=== PATIENT | female | born 1955 | race Caucasian/White ===

== ENCOUNTER 2018-05-24 10:45 | Inpatient (IN) | payer BC ==
[2018-05-24] MEDS ORDERED: IV FLUID CONTINUATION 900 ML IV ONE (12:55)
[2018-05-24] MEDS ORDERED: MIDAZOLAM 2 MG/2 ML VIAL IV ONE (13:15)
[2018-05-24] MEDS ORDERED: fentaNYL (PF) 50 MCG/ML 2 ML AMP IVP ONE (13:15)
[2018-05-24] MEDS ORDERED: LIDOCAINE 1% INJ 10MG/ML (20 ML MDV) SQ ONE (13:19)
[2018-05-24] MEDS ORDERED: NITROGLYCERIN 1000MCG/10ML SYRINGE INTRACORON ONE (13:32)
[2018-05-24] MEDS ORDERED: IOPAMIDOL-370 125ML BTL INJ ONE (13:33)
[2018-05-24] MEDS ORDERED: RX INFO: IV CONTRAST WAS GIVEN 1 EACH MISC MISCELLANE PRN (13:43)
[2018-05-24] MEDS: METOPROLOL SUCCINATE (ER) 25 MG TAB.ER.24H PO SCH (21:23)
[2018-05-25 07:42] VITALS: TEMP 98.2
[2018-05-25] MEDS: METOPROLOL SUCCINATE (ER) 25 MG TAB.ER.24H PO SCH (07:42)
[2018-05-25] MEDS ORDERED: ASPIRIN 325 MG TAB PO SCH (09:00)
[2018-05-25] MEDS ORDERED: CLOPIDOGREL 75 MG TAB PO SCH (09:00)
[2018-05-25 09:26] LABS: Basophils % (A) 0 %; Eosinophils # (A) 0.1 k/uL (0-0.7); Eosinophils % (A) 1 %; HCT 38.3 % (34.0-46.0); HGB 13.2 gm/dL (11.4-16.0); Lymphocytes # (A) 1.5 k/uL (1.0-4.8); Lymphocytes % (A) 23 %; MCH 32.8 pg (25.0-35.0); MCHC 34.4 g/dL (31.0-37.0); MCV 95.3 fL (80.0-100.0); Mean Platelet Volume 7.2; Monocytes # (A) 0.3 k/uL (0-1.0); Monocytes % (A) 5 %; Neutrophils # (A) 4.4 k/uL (1.3-7.7); Neutrophils % (A) 70 %; Platelet Count 209 k/uL (150-450); RBC 4.02 m/uL (3.80-5.40); RDW 12.7 % (11.5-15.5); WBC 6.4 k/uL (3.8-10.6)
[2018-05-25 09:48] LABS: Anion Gap 11 mmol/L; Blood Urea Nitrogen 8 mg/dL (7-17); Calcium 9.3 mg/dL (8.4-10.2); Carbon Dioxide 23 mmol/L (22-30); Chloride 108 mmol/L (98-107); Glucose 92 mg/dL (74-99); Potassium 4.2 mmol/L (3.5-5.1); Sodium 142 mmol/L (137-145)
--- NOTE | 2018-05-25 10:33 | P.PN ---
Subjective Progress Note Date: 05/25/18 Principal diagnosis: Chest discomfort This is a pleasant 62-year-old female patient who presented to [facility] with chest discomfort was concerning for angina. She underwent a heart catheterization by Dr. VC Denson yesterday and that showed severe disease involving a small PLV branch of the RCA. Maximize medical treatment was recommended. I'll follow-up with her today, she denies having any chest pain or discomfort or shortness of breath. The right groin is soft and nontender and without any bruises. From a perivascular standpoint overview she can be discharged home. Objective - Vital Signs Vital signs: Vital Signs Temp 98.2 F 05/25/18 07:39 Pulse 65 05/25/18 07:39 Resp 18 05/25/18 07:39 BP 132/76 05/25/18 07:39 Pulse Ox 97 05/25/18 07:39 Intake & Output 05/24/18 05/25/18 05/25/18 18:59 06:59 18:59 Intake Total 100 650 Balance 100 650 Weight 81.306 kg 58 kg Intake: IV 100 Intake, IV Titration 650 Amount Sodium Chloride 0.9% 1, 650 000 ml @ 75 mls/hr IV . [id number] [facility] Rx#:[id number] - Constitutional General appearance: Present: no acute distress - Respiratory Respiratory: bilateral: CTA - Cardiovascular Rhythm: regular Heart sounds: normal: S1, S2 - Labs CBC & Chem 7: 05/25/18 09:14 05/25/18 09:14 Labs: Abnormal Lab Results - Last 24 Hours (Table) 05/25/18 Range/Units 09:14 Chloride 108 H (98-107) mmol/L Assessment and Plan Assessment: Assessment #1 coronary artery disease involving a small branch of the RCA Plan #1 the patient can be discharged home the next #2 she is to be on aspirin, Plavix, and statin.
[2018-05-25] MEDS: SODIUM CHLORIDE 0.9% 1,000 ML IV SCH (10:38)
[2018-05-25 11:18] VITALS: BP 153/75; PULSE 66; RESP 16
--- NOTE | 2018-05-25 16:18 | P.CONS ---
History of Present Illness - Reason for Consult Consult date: 05/25/18 - Chief Complaint Elevated troponin, suspected an NSTEMI - History of Present Illness This is a 62-year-old patient with underlying chronic current history of tobacco use, and noncompliance medical evaluation and visits with Dr. Moffett, also with the current dental tooth abscess for which he is on amoxicillin, admitted to [facility] secondary to chest pressure. Was found to be in a NSTEMI. sHe came in with abnormal troponin and had a positive troponin with a peak of 0.45 patient was transferred to [facility] for cardiac catheterization for evaluation. Imaging studies at [facility] shows electrocardiogram of EF 55-60% without any wall motion abnormality, no LVH, mild MR, mild TR, RVSP 42, mild TX , no aortic stenosis, no AR, lipase normal, LDL of 167, creatinine of 0.96 GFR 59 EKG did not reveal any ST segment elevation or depression, Review of Systems Constitutional: Reports as per HPI, Denies anorexia, Denies chills, Denies chronic headaches, Denies chronic pain, Denies daytime sleepiness, Denies fatigue, Denies fever, Denies lethargy, Denies malaise, Denies night sweats, Denies poor appetite, Denies sweats, Denies weakness, Denies weight gain, Denies weight loss Ears, nose, mouth and throat: Reports as per HPI Cardiovascular: Reports as per HPI, Reports chest pain, Reports edema Respiratory: Reports as per HPI, Denies congestion, Denies cough, Denies cough with sputum, Denies dyspnea, Denies excessive sputum, Denies hemoptysis, Denies home oxygen, Denies pain, Denies pain on inspiration, Denies pleurisy, Denies respiratory infections, Denies sleep apnea, Denies snoring, Denies wheezing Genitourinary: Reports as per HPI, Denies abnormal vaginal bleeding, Denies decreased libido, Denies difficulty conceiving, Denies difficulty voiding, Denies dysmenorrhea, Denies dyspareunia, Denies dysuria, Denies flank pain, Denies genital sores, Denies hematuria, Denies hot flashes, Denies incomplete emptying, Denies kidney stones, Denies menorrhagia, Denies mixed incontinence, Denies nocturia, Denies pelvic pain, Denies post void dribbling, Denies , Denies prolapse symptoms, Denies stress incontinence, Denies urge incontinence , Denies urgency, Denies urinary frequency, Denies vaginal discharge, Denies vaginal dryness, Denies vaginal itching, Denies vaginal odor Menstruation: Reports as per HPI, Reports postmenopausal Musculoskeletal: Reports as per HPI, Reports low back pain Integumentary: Reports as per HPI Neurological: Reports as per HPI, Denies aphasia, Denies ataxia, Denies balance difficulties, Denies burning pain, Denies change in mentation, Denies change in smell/taste, Denies change in speech, Denies confusion, Denies convulsions, Denies double vision, Denies gait dysfunction, Denies head injury, Denies headaches, Denies hearing difficulties, Denies lack of coordination, Denies loss of vision, Denies memory loss, Denies migraines, Denies motor disturbance, Denies numbness, Denies paralysis, Denies paresthesias, Denies seizures, Denies sensory deficit, Denies spasticity, Denies syncope, Denies tic, Denies tingling , Denies transient paralysis, Denies tremors, Denies vertigo, Denies weakness, Denies visual changes Endocrine: Reports as per HPI Hematologic/Lymphatic: Reports as per HPI Allergic/Immunologic: Reports as per HPI Past Medical History Past Medical History: Coronary Artery Disease (CAD), Osteoarthritis (OA) Additional Past Medical History / Comment(s): currently being tx for dental abcess History of Any Multi-Drug Resistant Organisms: None Reported Past Surgical History: Tubal Ligation Additional Past Surgical History / Comment(s): 05-24-18 heart cath -clear. 1 upper dental implant,life style fce lift approx 10 years ago Past Anesthesia/Blood Transfusion Reactions: No Reported Reaction Smoking Status: Current every day smoker (One pack per day since age 15 currently down at one half pack per day) - Past Family History Mother Family Medical History: Dementia Additional Family Medical History / Comment(s): parkinsons Father Family Medical History: CVA/TIA, Diabetes Mellitus Brother(s) Additional Family Medical History / Comment(s): carotid stenosis Sister(s) Family Medical History: Diabetes Mellitus, Fibromyalgia Medications and Allergies Home Medications Medication Instructions Recorded Confirmed Type Acetaminophen Tab [Tylenol] 500 mg PO BID PRN 05/24/18 05/24/18 History Amoxicillin 500 mg PO Q8H 05/24/18 05/24/18 History Aspirin 325 mg PO DAILY tab 05/25/18 Rx Atorvastatin Calcium [Lipitor] 40 mg PO HS #30 tablet 05/25/18 Rx Clopidogrel [Plavix] 75 mg PO DAILY #30 tab 05/25/18 Rx Metoprolol Succinate (ER) [Toprol 25 mg PO DAILY #30 tab.er.24h 05/25/18 Rx XL] Allergies Allergy/AdvReac Type Severity Reaction Status Date / Time No Known Allergies Allergy Verified 05/24/18 20:39 Physical Exam Vitals: Vital Signs Temp Pulse Resp BP BP Pulse Ox 05/25/18 11:17 66 16 153/75 100 05/25/18 07:39 98.2 F 65 18 132/76 97 05/25/18 04:00 97.5 F L 68 18 118/63 98 05/24/18 23:39 97.2 F L 69 16 133/69 97 05/24/18 20:00 97.3 F L 62 16 130/70 99 05/24/18 12:36 98.7 F 71 20 149/71 142/70 98 Intake and Output 05/24/18 05/25/18 05/25/18 22:59 06:59 14:59 Intake Total 650 Balance 650 Intake: Intake, IV Titration 650 Amount Sodium Chloride 0.9% 1, 650 000 ml @ 75 mls/hr IV . [id number] [facility] Rx#:[id number] Other: Weight 58 kg - Constitutional General appearance: cooperative, no acute distress - EENT Eyes: anicteric sclerae, EOMI, poor dentition, normal appearance ENT: NA/AT - Neck Neck: normal ROM - Respiratory Respiratory: bilateral: CTA, negative: dullness, rales, rhonchi, wheezing, prolonged inspiration - Cardiovascular Rhythm: regular - Gastrointestinal General gastrointestinal: normal bowel sounds, soft - Integumentary Integumentary: normal - Neurologic Neurologic: CNII-XII intact - Musculoskeletal Musculoskeletal: gait normal - Psychiatric Psychiatric: A&O x's 3, appropriate affect, intact judgment & insight Results CBC & Chem 7: 05/25/18 09:14 05/25/18 09:14 Labs: Abnormal Lab Results - Last 24 Hours (Table) 05/25/18 Range/Units 09:14 Chloride 108 H (98-107) mmol/L Laboratory Results WBC 6.4 k/uL (3.8-10.6) 05/25/18 09:14 RBC 4.02 m/uL (3.80-5.40) 05/25/18 09:14 Hgb 13.2 gm/dL (11.4-16.0) 05/25/18 09:14 Hct 38.3 % (34.0-46.0) 05/25/18 09:14 MCV 95.3 fL (80.0-100.0) 05/25/18 09:14 MCH 32.8 pg (25.0-35.0) 05/25/18 09:14 MCHC 34.4 g/dL (31.0-37.0) 05/25/18 09:14 RDW 12.7 % (11.5-15.5) 05/25/18 09:14 Plt Count 209 k/uL (150-450) 05/25/18 09:14 Neutrophils % 70 % 05/25/18 09:14 Lymphocytes % 23 % 05/25/18 09:14 Monocytes % 5 % 05/25/18 09:14 Eosinophils % 1 % 05/25/18 09:14 Basophils % 0 % 05/25/18 09:14 Neutrophils # 4.4 k/uL (1.3-7.7) 05/25/18 09:14 Lymphocytes # 1.5 k/uL (1.0-4.8) 05/25/18 09:14 Monocytes # 0.3 k/uL (0-1.0) 05/25/18 09:14 Eosinophils # 0.1 k/uL (0-0.7) 05/25/18 09:14 Basophils # 0.0 k/uL (0-0.2) 05/25/18 09:14 Sodium 142 mmol/L (137-145) 05/25/18 09:14 Potassium 4.2 mmol/L (3.5-5.1) 05/25/18 09:14 Chloride 108 mmol/L (98-107) H 05/25/18 09:14 Carbon Dioxide 23 mmol/L (22-30) 05/25/18 09:14 Anion Gap 11 mmol/L 05/25/18 09:14 BUN 8 mg/dL (7-17) 05/25/18 09:14 Creatinine 0.62 mg/dL (0.52-1.04) 05/25/18 09:14 Est GFR (CKD-EPI)AfAm >90 (>60 ml/min/1.73 sqM) 05/25/18 09:14 Est GFR (CKD-EPI)NonAf >90 (>60 ml/min/1.73 sqM) 05/25/18 09:14 Glucose 92 mg/dL (74-99) 05/25/18 09:14 Calcium 9.3 mg/dL (8.4-10.2) 05/25/18 09:14 Assessment and Plan Plan: 1. Acute non-ST elevation Ab faction, with known history of hyperlipidemia untreated, current tobacco use, for which patient underwent cardiac catheter, no intervention needed, medically managed at this time, aspirin and Plavix was recommended, along with statins. 2. Current tobacco use, patient refused any cessation program using Chantix as she had some side effect before, I advised to use nicotine patches over-the- counter or Nicotrol inhaler 3. CK D stage II, monitor creatinine as an outpatient, 4. Hyperlipidemia LDL of 167, statins initiated 80 mg Lipitor, lipid panel to follow as an outpatient 5. GI prophylaxis next 6. DVT prophylaxis next 7. Current dental abscess treatment using amoxicillin for which she is to continue post discharge
--- NOTE | 2018-06-29 16:55 | CC ---
CARDIAC CATHETERIZATION REPORT DATE OF PROCEDURE: 05/24/2018 Mrs. Huitron was transferred from [facility] because of symptoms suggestive of unstable angina for cardiac catheterization. PROCEDURE: Right groin was prepped and draped in the usual manner and the skin was infiltrated with 2% Xylocaine. The right femoral artery was entered using Seldinger technique. A #6- [place] sheath was placed in. Selective coronary angiography was then performed in multiple projections and the left ventricular pressures were obtained. Patient tolerated the procedure well. HEMODYNAMICS: Left ventricular end-diastolic pressure was 8 to 12 mmHg prior to angiography. No gradient was noted across the aortic valve. SELECTIVE CORONARY ANGIOGRAPHY: 1. Left main coronary artery is normal and patent. 2. LAD is a good-caliber blood vessel and gives rise to a good-sized diagonal branch. LAD and its branches are normal. 3. Circumflex coronary artery is normal. 4. Right coronary artery is dominant in distribution and gives rise to the posterior descending artery. Right coronary artery and its branches are normal. RECOMMENDATIONS: Symptomatic medical therapy and risk factor modification. MMODL / IJN: [id number] /
== END 2018-05-25 12:37 | disposition home or self-care (01) | DRG 282 ==
LOC: 2CATHESU 12:00 → 6SEL 13:35
PROVIDERS: ADMIT Internal Medicine Cardiovascular Disease; ATTEND Internal Medicine Cardiovascular Disease
PROC: B2111ZZ Fluoroscopy of Multiple Coronary Arteries using Low Osmolar Contrast (ICD-10-PCS; 2018-05-24)
PROC: 4A023N7 Measurement of Cardiac Sampling and Pressure, Left Heart, Percutaneous Approach (ICD-10-PCS; principal; 2018-05-24 13:05)
DX: I21.4 Non-ST elevation (NSTEMI) myocardial infarction (principal); F17.210 Nicotine dependence, cigarettes, uncomplicated; I25.10 Atherosclerotic heart disease of native coronary artery without angina pectoris; K04.7 Periapical abscess without sinus; M19.90 Unspecified osteoarthritis, unspecified site; E78.5 Hyperlipidemia, unspecified; N18.2 Chronic kidney disease, stage 2 (mild); Z79.02 Long term (current) use of antithrombotics/antiplatelets; Z79.82 Long term (current) use of aspirin; Z79.899 Other long term (current) drug therapy; Z91.19 Patient's noncompliance with other medical treatment and regimen; Z98.51 Tubal ligation status; Z82.0 Family history of epilepsy and other diseases of the nervous system; Z83.3 Family history of diabetes mellitus; Z82.3 Family history of stroke
CPT/HCPCS: 80048; 85025; 93458

== ENCOUNTER → 2020-06-25 | Outpatient (CLI) | payer BC ==
--- NOTE | 2020-06-26 13:46 | P.ARTDOP ---
Arterial Doppler LOWER EXTREMITY ARTERIAL DOPPLER: DATE OF SERVICE: 06/25/2020 Reason for study: Bilateral leg pain. Doppler waveforms: Multiphasic bilaterally throughout. Pulse volume recording: []. Pressure gradients: None. Ankle-brachial indices: Greater than 1 bilaterally. Toe brachial indices: 0.81 on the right, 0.90 on the left Impression: Normal study.
== END | disposition home or self-care (01) ==
LOC: RADUSWWP 12:40
PROVIDERS: ATTEND Internal Medicine
DX: M79.606 Pain in leg, unspecified (principal)
CPT/HCPCS: 93922; 93923

== ENCOUNTER → 2020-07-10 | Outpatient (CLI) | payer BC ==
--- NOTE | 2020-07-11 10:01 | ECHOF ---
Referral Reason:I21.14 MEASUREMENTS -------- HEIGHT: 165.1 cm WEIGHT: 84.8 kg BP: RVIDd: 3.0 cm (< 3.3) IVSd: 1.3 cm (0.6 - 1.1) LVIDd: 3.7 cm (3.9 - 5.3) LVPWd: 1.3 cm (0.6 - 1.1) EDV(Teich): 57 ml IVSs: 1.4 cm LVIDs: 3.4 cm LVPWs: 1.4 cm %IVS Thck: 11 % ESV(Teich): 47 ml EF(Teich): 17 % %FS: 7 % SV(Teich): 10 ml LA Diam: 3.6 cm (2.7 - 3.8) LALs A4C: 5.8 cm LAAs A4C: 18.3 cm LAESV A-L A4C: 49 ml LAESV MOD A4C: 47 ml LALs A2C: 6.0 cm LAAs A2C: 17.3 cm LAESV A-L A2C: 42 ml LAESV MOD A2C: 40 ml LAESV(A-L): 46 ml LAESV Index (A-L): 24.07 ml/m Ao Diam: 3.3 cm (2.0 - 3.7) AV Cusp: 2.1 cm (1.5 - 2.6) LA Diam: 3.9 cm (2.7 - 3.8) MV EXCURSION: 13.883 mm (> 18.000) MV EF SLOPE: 57 mm/s (70 - 150) EPSS: 0.8 cm MV E [place]: 0.45 m/s MV DecT: 290 ms MV Dec [place]: 1.6 m/s MV A [place]: 0.69 m/s MV E/A Ratio: 0.65 MV PHT: 84 ms TR Vmax: 2.93 m/s TR maxP.29 mmHg RAP: 5.00 mmHg RVSP: 39.29 mmHg FINDINGS -------- Sinus rhythm. This was a technically good study. LV size, wall thickness and systolic function are normal, with an EF greater than 55%. The left vero tricular size is normal. The right ventricle is normal in size. The left atrial size is normal. Normal LA size by volume 22+/-6 ml/m2. The right atrial size is normal. The aortic valve is trileaflet, and appears structurally normal. No aortic stenosis or regurgitation. Mild mitral regurgitation is present. Mild tricuspid regurgitation present. There is mild pulmonary hypertension. There is no pulmonic regurgitation present. The aortic root size is normal. There is no pericardial effusion. CONCLUSIONS -------- 1. LV size, wall thickness and systolic function are normal, with an EF greater than 55%. 2. The left ventricular size is normal. 3. The right ventricle is normal in size. 4. The left atrial size is normal. 5. Normal LA size by volume 22+/-6 ml/m2. 6. The right atrial size is normal. 7. Mild mitral regurgitation is present. 8. Mild tricuspid regurgitation present. 9. There is mild pulmonary hypertension. SYSTEMS INTEGRATION ADVISOR: Julia Gillis RDCS
== END | disposition home or self-care (01) ==
LOC: RADECHMAIN 14:51
PROVIDERS: ATTEND Internal Medicine
DX: I08.1 Rheumatic disorders of both mitral and tricuspid valves (principal); I27.20 Pulmonary hypertension, unspecified
CPT/HCPCS: 93306

== ENCOUNTER → 2021-02-17 | Outpatient (CLI) | payer OTHER ==
--- NOTE | 2021-02-17 18:45 | BD ---
EXAMINATION TYPE: Axial Bone Density DATE OF EXAM: 02/17/2021 COMPARISON: NONE CLINICAL HISTORY: Height: 64.5 IN Weight: 189 LBS FRAX RISK QUESTIONS: Current Tobacco Use: YES RISK FACTORS HISTORY OF: History of Wrist Fracture: RT WRIST FX AGE 30 Active: YES Postmenopausal woman: AGE 59 MEDICATIONS: Additional Medications: PLAVIX, LIPITOR, 325 MG ASPIRIN, METOPROLOL, ATORVASTATIN, CLOPIDOGREL EXAM MEASUREMENTS: Bone mineral densitometry was performed using the [employer] System. Bone mineral density as measured about the Lumbar spine is: ----- L1-L4(G/cm2): 1.158 T Score Values are as follows: ----- L2: -0.8 ----- L3: 0.3 ----- L4: -0.1 ----- L1-L4: -0.2 Bone mineral density BASELINE Bone mineral density about the R hip (g/cm2): 0.913 Bone mineral density about the L hip (g/cm2): 0.930 T Score values are as follows: -----R Neck: -0.9 -----L Neck: -0.8 -----R Total: -0.1 -----L Total: 0.1 Bone mineral density BASELINE IMPRESSION: Normal (Values between +1 and -1 indicate normal bone mass). Consider repeating this study in 5 year s or sooner if there is some new clinical indication. NOTE: T-SCORE=SD OF THE YOUNG ADULT MEAN.
--- NOTE | 2021-02-20 11:18 | MM ---
Reason for exam: screening (asymptomatic). History: Patient is postmenopausal. Took hormonal contraceptives for 1 month. Physical Findings: A clinical breast exam by your physician is recommended on an annual basis and results should be correlated with mammographic findings. MG Screening Mammo w CAD Bilateral CC and MLO view(s) were taken. No prior studies available for comparison. There are scattered fibroglandular densities. There is no discrete abnormality. Small benign oil cyst calcifications. ASSESSMENT: Benign, BI-RAD 2 RECOMMENDATION: Routine screening mammogram of both breasts in 1 year. Patient should continue monthly self breast exams. A negative report should not preclude additional follow up of suspicious palpable abnormalities.
== END | disposition home or self-care (01) ==
LOC: RADMAMWWP 15:19
PROVIDERS: ATTEND Internal Medicine
DX: Z12.31 Encounter for screening mammogram for malignant neoplasm of breast (principal); M81.0 Age-related osteoporosis without current pathological fracture
CPT/HCPCS: 77067; 77080

== ENCOUNTER 2022-09-28 09:44 | Emergency (ER) | payer OTHER ==
[2022-09-28 09:57] VITALS: TEMP 98.7
[2022-09-28] MEDS ORDERED: dexAMETHasone 2 MG TAB PO STA (10:40)
--- NOTE | 2022-09-28 10:40 | ED ---
General Adult HPI - General Chief complaint: Upper Respiratory Infection Stated complaint: SOB, Sent by PCP Time Seen by Provider: 09/28/22 10:30 Source: patient, RN notes reviewed, old records reviewed Mode of arrival: ambulatory Limitations: no limitations - History of Present Illness Initial comments: Patient is a 66-year-old female who has a past medical history remarkable for tobacco use, CAD who presents emergency Department complaining of a cough since yesterday. Endorses nasal congestion, nonproductive cough. Is concerned that she may have an upper respiratory infection. Once vaccinated for Covid. No known sick contacts. No formally diagnosed COPD. Denies any chest pain, shortness of breath, abdominal pain, nausea, vomiting, diarrhea. Presents for further evaluation at this time. Denies any fevers at home. Was instructed to come to the emergency department by her PCP. - Related Data Home Medications Medication Instructions Recorded Confirmed Atorvastatin Calcium [Lipitor] 80 mg PO DAILY 09/28/22 09/28/22 Previous Rx's Medication Instructions Recorded Aspirin 325 mg PO DAILY tab 05/25/18 Clopidogrel [Plavix] 75 mg PO DAILY #30 tab 05/25/18 Metoprolol Succinate (ER) [Toprol 25 mg PO DAILY #30 tab.er.24h 05/25/18 XL] Albuterol Inhaler [Ventolin Hfa 1 - 2 puff INHALATION Q6H PRN #1 09/28/22 Inhaler] dispenser dexAMETHasone [Decadron] 4 mg PO DAILY 4 Days #4 tab 09/28/22 Allergies Allergy/AdvReac Type Severity Reaction Status Date / Time No Known Allergies Allergy Verified 09/28/22 11:28 Review of Systems ROS Statement: Those systems with pertinent positive or pertinent negative responses have been documented in the HPI. Review of Systems: CONST: Denies fever EYES: Denies blurry vision ENT: Endorses nasal congestion C/V: Denies Chest pain RESP: Denies shortness of breath GI: Denies abdominal pain : Denies dysuria SKIN: Denies rash. MSK: Denies joint pain. NEURO: Denies headache ROS Other: All systems not noted in ROS Statement are negative. Past Medical History Past Medical History: Coronary Artery Disease (CAD), Osteoarthritis (OA) Additional Past Medical History / Comment(s): currently being tx for dental abcess History of Any Multi-Drug Resistant Organisms: None Reported Past Surgical History: Tubal Ligation Additional Past Surgical History / Comment(s): 05-24-18 heart cath -clear. 1 upper dental implant,life style fce lift approx 10 years ago Past Anesthesia/Blood Transfusion Reactions: No Reported Reaction Past Psychological History: No Psychological Hx Reported Past Alcohol Use History: Rare Past Drug Use History: None Reported - Past Family History Mother Family Medical History: Dementia Additional Family Medical History / Comment(s): parkinsons Father Family Medical History: CVA/TIA, Diabetes Mellitus Brother(s) Additional Family Medical History / Comment(s): carotid stenosis Sister(s) Family Medical History: Diabetes Mellitus, Fibromyalgia General Exam - General Exam Comments Initial Comments: General: Appears in no acute distress. HEAD: Normal with no signs of head trauma. EYES: PERRLA, EOMI, conjunctiva normal, no discharge. ENT: Hearing grossly intact, normal oropharynx. RESPIRATORY: Clear breath sounds bilaterally. No rhonchi. No wheezes. Mild hypoxia on room air. No respiratory distress. C/V: Regular rate and rhythm. S1 and S2 auscultated, peripheral pulses 2+ and intact throughout ABD: Abd is soft, nontender, nondistended EXT: Normal range of motion, no obvious deformity SKIN: No rashes or lesions observed on exposed skin. NEURO: Alert and oriented 4. Limitations: no limitations Course Vital Signs 09/28/22 09/28/22 09:55 13:33 Temperature 98.7 F Pulse Rate 107 H 90 Respiratory 16 18 Rate Blood Pressure 108/61 116/65 O2 Sat by Pulse 93 L 92 L Oximetry Medical Decision Making - Medical Decision Making Based on the patient's presentation and physical exam, I'm concerned for upper respiratory illness for the patient. We will obtain a chest x-ray as well as Covid and flu swabs. Vital signs within acceptable limits. She was in agreement this plan. She'll be given a dose of Decadron as well as Tylenol. Vital signs were positive for influenza type A. Negative for Covid. Chest x- ray showed no acute cardiopulmonary process. I discussed with the patient Tamiflu therapy and we decided not to administer. She will be given a prescription for Decadron for home. She was in agreement this plan. She'll also be given a prescription for albuterol inhaler for home. Strict return precautions were discussed. Instructed her to obtain pulse oximeter to monitor oxygen levels. Patient's breast understanding was in agreement this plan. I will provide the patient with a prescription for albuterol inhaler, Decadron. I instructed the patient to follow up with their PCP in the next 1-3 days. I explained that the patient should return to the emergency department if they experience any worsening symptoms. Strict return precautions were discussed with the patient. The patient expressed understanding of these instructions. I answered all questions that the patient had. The patient was discharged home in good condition with their prescriptions and follow up information. - Lab Data Lab Results 09/28/22 09/28/22 Range/Units 11:05 11:05 Coronavirus (PCR) Not Detected (Not Detectd) Influenza Type A RNA Detected H (Not Detectd) Influenza Type B (PCR) Not Detected (Not Detectd) Disposition Clinical Impression: Influenza A Disposition: HOME SELF-CARE Condition: Good Instructions (If sedation given, give patient instructions): Influenza (DC), Upper Respiratory Infection (ED) Prescriptions: dexAMETHasone [Decadron] 4 mg PO DAILY 4 Days #4 tab Albuterol Inhaler [Ventolin Hfa Inhaler] 1 - 2 puff INHALATION Q6H PRN #1 dispenser PRN Reason: Dyspnea Is patient prescribed a controlled substance at d/c from ED?: No Referrals: Bernadette Cartwright MD [Primary Care Provider] - 1-2 days Time of Disposition: 12:25
--- NOTE | 2022-09-28 11:01 | XR ---
EXAMINATION TYPE: XR chest 2V DATE OF EXAM: 09/28/2022 COMPARISON: NONE HISTORY: Cough. TECHNIQUE: Frontal and lateral views of the chest are obtained. FINDINGS: There is no focal air space opacity, pleural effusion, or pneumothorax seen. The cardiac silhouette size is within normal limits. The osseous structures are intact. IMPRESSION: No acute pulmonary process.
[2022-09-28] MEDS ORDERED: ACETAMINOPHEN TAB 500 MG TAB PO STA (11:13)
[2022-09-28 13:34] VITALS: BP 116/65; PULSE 90; RESP 18
== END 2022-09-28 13:34 | disposition home or self-care (01) ==
LOC: EC 09:44
DX: J09.X2 Influenza due to identified novel influenza A virus with other respiratory manifestations (principal); I25.10 Atherosclerotic heart disease of native coronary artery without angina pectoris; F17.200 Nicotine dependence, unspecified, uncomplicated; Z79.02 Long term (current) use of antithrombotics/antiplatelets; Z20.822 Contact with and (suspected) exposure to COVID-19; Z79.82 Long term (current) use of aspirin
CPT/HCPCS: 87502; 87635; 71046; 99284; J8540

== ENCOUNTER → 2025-02-28 | Outpatient (CLI) | payer MEDICARE ==
--- NOTE | 2025-03-01 16:13 | XR ---
EXAMINATION TYPE: XR Hip Complete LT DATE OF EXAM: 02/28/2025 1:18 PM COMPARISON: None. CLINICAL INDICATION: Female, 69 years old with history of M25.562, M25.552, pain TECHNIQUE: 2 view(s) obtained. FINDINGS: Left hip joint space is preserved. No acute fracture or dislocation is evident. Follow-up can be perf ormed as clinically indicated. IMPRESSION: 1. No acute osseous abnormality left hip [facility], , 03/01/2025 4:10 PM
--- NOTE | 2025-03-01 16:17 | XR ---
EXAMINATION TYPE: XR knee complete LT DATE OF EXAM: 02/28/2025 1:18 PM COMPARISON: None. CLINICAL INDICATION: Female, 69 years old with history of M25.562, M25.552, pain TECHNIQUE: 3 view(s) obtained. FINDINGS: Some mild narrowing of the medial compartment joint space may be present. Medial and lateral tibial p lateau spurring and medial femoral condylar sprain may be present. No joint effusion is evident. No acute fractures or dislocations evident. Follow up exams can be performed 7-10 days from acute tra everett for continued pain. IMPRESSION: 1. Minimal osteoarthritic degenerative change left knee [facility], , 03/01/2025 4:15 PM
== END | disposition home or self-care (01) ==
LOC: RADXRMAIN 12:57
PROVIDERS: ATTEND Physician Assistant
DX: M17.12 Unilateral primary osteoarthritis, left knee (principal); M25.552 Pain in left hip
CPT/HCPCS: 73502